=== PATIENT | male | born 1990 | race African-American/Black ===

== ENCOUNTER 2019-05-18 19:20 | Emergency (ER) | payer OTHER ==
[~2019-05-18] VITALS: Ht 172.7 cm; Wt 81.6 kg
[2019-05-18 19:30] VITALS: BP 142/87
[2019-05-18] MEDS ORDERED: CETI10TA16 PO (20:32)
[2019-05-18] MEDS ORDERED: OLOP5DRO EACHEYE (20:32)
--- NOTE | 2019-05-18 20:33 | PHYS DOC ---
Past Medical History Past Medical History: No Pertinent History Past Surgical History: No Surgical History Alcohol Use: Rarely Drug Use: None Adult General Chief Complaint Chief Complaint: EYE PROBLEMS HPI HPI Patient is a 28 year old AA , accompanied by his father, with complaints of bilateral eye redness, irritation, and crusting in the mornings for the last 2 days. Patient also reports frequent sneezing, nasal congestion, and a dry cough for about the last week. He denies any vision changes or eye itching. He states that his ears feel congested and that his throat has been sore for the last 2 days with frequent throat clearing. He denies any pain. Review of Systems Review of Systems Constitutional: Denies fever or chills [] Eyes: Denies change in visual acuity, or eye pain; see HPI HENT: See history of present illness Respiratory: Denies wheezing or shortness of breath; see history of present illness [] Cardiovascular: No additional information not addressed in HPI [] GI: Denies abdominal pain, nausea, vomiting, or diarrhea [] Musculoskeletal: Denies back pain or joint pain [] Integument: Denies rash or skin lesions [] Neurologic: Denies headache Complete systems were reviewed and found to be within normal limits, except as documented in this note. Allergies Allergies Allergies Coded Allergies Type Severity Reaction Last Updated Verified No Known Drug Allergies 05/18/19 No Physical Exam Physical Exam Constitutional: Well developed, well nourished, no acute distress, non-toxic appearance. [] HENT: Normocephalic, atraumatic, bilateral external ears normal, oropharynx moist, cobblestone appearance of posterior pharynx, no oral exudates, nasal turbinates edematous and erythematous Eyes: PERRLA, EOMI, conjunctiva injected, no discharge. [] Neck: Normal range of motion, no tenderness, supple, no stridor. [] Cardiovascular:Heart rate regular rhythm Lungs & Thorax: Bilateral breath sounds clear to auscultation [] Abdomen: Bowel sounds normal, soft, no tenderness, no masses, no pulsatile masses. [] Skin: Warm, dry, no erythema, no rash. [] Extremities: No cyanosis, ROM intact, no edema. [] Neurologic: Alert and oriented X 3, no focal deficits noted. [] Psychologic: Affect normal, judgement normal, mood normal. [] Current Patient Data Vital Signs Vital Signs Date Time Temp Pulse Resp B/P (MAP) Pulse Ox O2 Delivery O2 Flow Rate FiO2 05/18/19 19:30 98.6 66 16 142/87 (105) 97 Room Air 98.6 EKG EKG [] Radiology/Procedures Radiology/Procedures [] Course & Med Decision Making Course & Med Decision Making Pertinent Labs and Imaging studies reviewed. (See chart for details) [] Dragon Disclaimer Dragon Disclaimer This electronic medical record was generated, in whole or in part, using a voice recognition dictation system. Departure Departure Impression: Primary Impression: Allergic rhinitis Additional Impression: Allergic conjunctivitis and rhinitis Disposition: HOME, SELF-CARE Condition: STABLE Referrals: NO PCP (PCP) Patient Instructions: Allergic Conjunctivitis, [id number], Allergic Rhinitis Additional Instructions: Fill prescription(s) and use as directed. Tylenol or ibuprofen prn pain/fever. Avoid triggers such as smoke, fragrance, dust, and pollen. Follow-up with your primary care doctor as needed. Scripts Olopatadine Hcl (PATANOL) 5 Ml Drops 1 DROP EACHEYE BID for 14 Days, #5 ML 0 Refills Prov: YODIT MARCELINO SETTER UP 05/18/19 Cetirizine Hcl (CETIRIZINE HCL) 10 Mg Tablet 1 TAB PO HS for 30 Days, #30 TAB 0 Refills Prov: YODIT MARCELINO SETTER UP 05/18/19 Problem Qualifiers Primary Impression: Allergic rhinitis Allergic rhinitis trigger: unspecified Allergic rhinitis seasonality: unspecified Qualified Codes: J30.9 - Allergic rhinitis, unspecified Additional Impression: Allergic conjunctivitis and rhinitis Laterality: bilateral Qualified Codes: H10.13 - Acute atopic conjunctivitis, bilateral; J30.9 - Allergic rhinitis, unspecified YODIT MARCELINO SETTER UP May 18, 2019 20:33
== END 2019-05-18 20:39 | disposition home or self-care (01) ==
LOC: ER 19:20
DX: J30.9 Allergic rhinitis, unspecified (principal); H10.13 Acute atopic conjunctivitis, bilateral
CPT/HCPCS: 99283

== ENCOUNTER 2019-05-27 08:24 | Emergency (ER) | payer OTHER ==
[~2019-05-27] VITALS: Ht 172.7 cm; Wt 81.6 kg
[~2019-05-27 08:24] MED LIST: CETI10TA16 PO; OLOP5DRO EACHEYE
[2019-05-27 08:30] VITALS: BP 144/86
[2019-05-27] MEDS ORDERED: MONT10TA49 PO (09:03)
[2019-05-27] MEDS ORDERED: METH4TAB2 PO (09:03)
[2019-05-27] MEDS ORDERED: HYDR5SUS PO (09:03)
[2019-05-27] MEDS ORDERED: AMOX1TAB61 PO (09:03)
--- NOTE | 2019-05-27 09:03 | PHYS DOC ---
Past Medical History Past Medical History: Other Additional Past Medical Histor: seasonal allergies Past Surgical History: No Surgical History Alcohol Use: Rarely Drug Use: None Adult General Chief Complaint Chief Complaint: SORE THROAT HPI HPI Patient is a 28 year old male who presents with complaining of nasal congestion and facial swelling. Patient complaining of nasal congestion, mild nonproductive cough, facial pain and conjunctival erythema for the last 10 days without fever., neck pain, chest pain, shortness of breath, shortness of breath, sick contact. Patient states he had this has allergic rhinitis and seen in this emergency room on May 18 and treated with Zithromax without improvement of his condition. Review of Systems Review of Systems Constitutional: Denies fever or chills [] Eyes: Denies change in visual acuity, reports eyes admits HENT: Reports nasal congestion or sore throat Respiratory: Denies shortness of breath, reports cough [] Cardiovascular: No additional information not addressed in HPI [] GI: Denies abdominal pain, nausea, vomiting, bloody stools or diarrhea [] : Denies dysuria or hematuria [] Musculoskeletal: Denies back pain or joint pain [] Integument: Denies rash or skin lesions [] Neurologic: Denies headache, focal weakness or sensory changes [] Endocrine: Denies polyuria or polydipsia [] All other systems were reviewed and found to be within normal limits, except as documented in this note. Allergies Allergies Allergies Coded Allergies Type Severity Reaction Last Updated Verified No Known Drug Allergies 05/18/19 No Physical Exam Physical Exam Constitutional: Well developed, well nourished, milddistress, non-toxic appearance. [] HENT: Normocephalic, atraumatic, generalized facial mild edema, bilateral external ears normal, , tympanic membrane normal, oropharynx moist, no oral exudates, severe nasal congestion and mucosal erythema and edema Eyes: PERRLA, EOMI, conjunctiva normal, no discharge. [] Neck: Normal range of motion, no tenderness, supple, no stridor. [] Cardiovascular:Heart rate regular rhythm, no murmur [] Lungs & Thorax: Bilateral breath sounds clear to auscultation [] Extremities: No tenderness, no cyanosis, no clubbing, ROM intact, no edema. [] Neurologic: Alert and oriented X 3, normal motor function, normal sensory function, no focal deficits noted. [] Psychologic: Affect normal, judgement normal, mood normal. [] Current Patient Data Vital Signs Vital Signs Date Time Temp Pulse Resp B/P (MAP) Pulse Ox O2 Delivery O2 Flow Rate FiO2 05/27/19 08:30 98.5 77 18 144/86 (105) 97 Room Air 98.5 EKG EKG [] Radiology/Procedures Radiology/Procedures [] Course & Med Decision Making Course & Med Decision Making I've spoken with the patient and/or caregivers. I've explained the patient's condition, diagnosis and treatment plan based on information available to me at this time. I've answered the patient's and/or caregivers questions and addressed any concerns. The patient and/or caregivers have a good understanding the patient's diagnosis, condition and treatment plan as can be expected at this point. Vital signs have been stabilized. The patient's condition is stable for discharge from the emergency department. The patient will pursue further outpatient evaluation with her primary care provider or other designated consulting physician as outlined in the discharge instructions. Patient and/or caregivers are agreeable to this plan of care and follow-up instructions have been explained in detail. The patient and/or caregivers have received these instructions in written format and expressed understanding of these discharge instructions. The patient and her caregivers are aware that if any significant change in condition or worsening of symptoms should prompt him to immediately return to this of the closest emergency de partment. If an emergent department is not readily available I would encourage him to call 911. Duane Disclaimer Duane Disclaimer This electronic medical record was generated, in whole or in part, using a voice recognition dictation system. Departure Departure Impression: Primary Impression: Upper respiratory infection Additional Impression: Allergic conjunctivitis and rhinitis Disposition: 01 HOME, SELF-CARE (at 0853) Condition: STABLE Referrals: NO PCP (PCP) Patient Instructions: Allergic Rhinitis, Upper Respiratory Infection, Adult Additional Instructions: Drink plenty of liquids Follow-up with your primary care physician in 3-5 days Return to ER if not getting better Scripts Montelukast Sodium (MONTELUKAST SODIUM TABLET ) 10 Mg Tablet 10 MG PO HS for FOR ASTHMA, #30 TAB 0 Refills Prov: KATHI SOUZA MD 05/27/19 Hydrocodone/Chlorphen Polis (HYDROCODONE-CHLORPHENIRAM SUSP) 5 Ml Yany.er.12h 5 ML PO PRN Q12HR PRN for COUGH, #60 ML 0 Refills Prov: KATHI SOUZA MD 05/27/19 Methylprednisolone (MEDROL) 4 Mg Tab.ds.pk 1 PKG PO UD for inflammation, #1 PKG Prov: KATHI SOUZA MD 05/27/19 Amoxicillin/Potassium Clav (AUGMENTIN 875-125 TABLET) 1 Each Tablet 1 TAB PO Q12HR, #14 TAB Prov: KATHI SOUZA MD 05/27/19 Problem Qualifiers Primary Impression: Upper respiratory infection URI type: unspecified URI Qualified Codes: J06.9 - Acute upper respiratory infection, unspecified Additional Impression: Allergic conjunctivitis and rhinitis Laterality: bilateral Qualified Codes: H10.13 - Acute atopic conjunctivitis, bilateral; J30.9 - Allergic rhinitis, unspecified KATHI SOUZA MD May 27, 2019 09:03
== END 2019-05-27 09:33 | disposition home or self-care (01) ==
LOC: ER 08:24
DX: J06.9 Acute upper respiratory infection, unspecified (principal); H10.13 Acute atopic conjunctivitis, bilateral; J30.9 Allergic rhinitis, unspecified
CPT/HCPCS: 99283